=== PATIENT | female | born 1975 | race Two or more races ===

== ENCOUNTER 2018-08-01 12:37 | Emergency (ER) | payer SELFPAY | END 2018-08-01 12:39 | disposition home or self-care (01) | LOC: ED 12:37 | DX: Z02.9 Encounter for administrative examinations, unspecified (principal) ==

== ENCOUNTER 2018-09-06 12:12 | Inpatient (IN) | payer OTHER ==
[~2018-09-06] VITALS: Ht 167.6 cm; Wt 91.0 kg
[~2018-09-06 12:12] MED LIST: ALBU1.25 NEB; ALBU90AE INH; METF850T10 PO
[2018-09-06] MEDS ORDERED: ALBUTEROL/IPRATROPIUM 2.5MG/0.5MG, 3 ML NPPB ONE (12:30)
--- NOTE | 2018-09-06 14:59 | NUR ---
VESSEL SLAGMAN: PT TO ROOM FROM LOBBY.
[2018-09-06] MEDS ORDERED: ALBUTEROL/IPRATROPIUM 2.5MG/0.5MG, 3 ML ONE ×2 (15:38)
[2018-09-06] MEDS: ALBUTEROL/IPRATROPIUM 2.5MG/0.5MG, 3 ML NPPB SCH ×2 (15:42→22:00)
--- NOTE | 2018-09-06 17:24 | NUR ---
PT AMBULATED W/O OXYGEN, SP02 MONITORED = 87-88%. DR. WHITING UPDATED. PLAN FOR ADMIT DISCUSSED WITH PT AND QUESTIONS ANSWERED. PT RTD TO ROOM, 02 3L NC PLACED. CALL LIGHT W/I REACH VSS
[2018-09-06] MEDS ORDERED: SODIUM CHLORIDE FLUSH 10ML SYR IVF ONE (17:30)
--- NOTE | 2018-09-06 17:33 | NUR ---
MEAL TRAY, REG DIET PROVIDED. PT SITTING UP AT BEDSIDE TO EAT. NAD NOTED.
[2018-09-06] MEDS ORDERED: ONDANSETRON ODT 4 MG PO PRN (18:00)
[2018-09-06] MEDS ORDERED: POLYETHYLENE GLYCOL 17 GM PACKET PO PRN (18:00)
[2018-09-06] MEDS ORDERED: BISACODYL 10 MG SUPP PR PRN (18:00)
[2018-09-06] MEDS ORDERED: ACETAMINOPHEN 325 MG TABLET PO PRN (18:00)
--- NOTE | 2018-09-06 18:13 | NUR ---
PT ATE 90% OF MEAL
[2018-09-06 19:00] LABS: HEMOGLOBIN A1C 12.6 % (4.2-6.3)
--- NOTE | 2018-09-06 19:01 | NUR ---
PT BEDSIDE REPORT FROM SUSANA SPENCE. THIS RN TO ASSUME CARE OF PT. PT RESTING COMFORTABLY ON GURNEY. NADN. VSS. CALL LIGHT WITHIN REACH. AWAITING ADM BED. PT ON MED HOLD.
[2018-09-06] MEDS ORDERED: methylPREDNISolone SOD SUCC 125 MG/2 ML ONE (19:04)
[2018-09-06] MEDS ORDERED: HEPARIN 5,000 UNITS/ML, 1ML ONE (19:04)
[2018-09-06] MEDS: methylPREDNISolone SOD SUCC 125 MG/2 ML IVPush SCH ×2 (19:11→23:57)
[2018-09-06] MEDS: HEPARIN 5,000 UNITS/ML, 1ML SQ SCH (19:11)
--- NOTE | 2018-09-06 19:18 | NUR ---
PT GIVEN CRACKERS AND SPRITE AND AMB W/ STEADY GAIT TO RR AT THIS TIME.
[2018-09-06 21:05] VITALS: BP 120/85
[2018-09-06] MEDS: metFORMIN 850 MG TABLET PO SCH (21:24)
[2018-09-06] MEDS: SODIUM CHLORIDE FLUSH 10ML SYR IVF SCH (21:25)
[2018-09-06] MEDS: INSULIN REGULAR 100 UNITS/ML, 3ML VIAL SQ-INSULIN SCH (21:25)
[2018-09-06] MEDS ORDERED: INSULIN REGULAR 100 UNITS/ML, 3ML VIAL SQ-INSULIN SCH (21:30)
[2018-09-07 01:24] VITALS: BP 110/73
[2018-09-07] MEDS: HEPARIN 5,000 UNITS/ML, 1ML SQ SCH ×3 (02:01→16:54)
[2018-09-07 05:11] LABS: BASOPHILS # (AUTO) 0.06 x10^3/uL (0-0.1); BASOPHILS % (AUTO) 1 % (0-1); EOSINOPHILS # (AUTO) 0.01 x10^3/uL (0-0.4); EOSINOPHILS % (AUTO) 0 % (1-7); LYMPHOCYTES # (AUTO) 1.15 x10^3/uL (1-3.4); LYMPHOCYTES % (AUTO) 10 % (22-44); MD NO; MEAN CORPUSCULAR HEMOGLOBIN 29.5 pg (27.0-34.8); MEAN CORPUSCULAR HGB CONC 34.1 g/dL (32.4-35.8); MEAN CORPUSCULAR VOLUME 86.6 fL (80-100); MEAN PLATELET VOLUME 10.4 fL (7.4-10.4); MONOCYTES # (AUTO) 0.02 x10^3/uL (0.2-0.8); MONOCYTES % (AUTO) 0 % (2-9); NEUTROPHILS # (AUTO) 10.01 x10^3/uL (1.8-6.8); NEUTROPHILS % (AUTO) 89 % (42-75); PLATELET COUNT 229 x10^3/uL (130-400); RED BLOOD COUNT 5.27 x10^6/uL (3.82-5.3); RED CELL DISTRIBUTION WIDTH 12.8 % (9.6-15.2)
[2018-09-07 05:20] LABS: CHLORIDE 104 mmol/L (98-107)
[2018-09-07 05:30] LABS: ALANINE AMINOTRANSFERASE 23 U/L (12-78); ALBUMIN 3.3 g/dL (3.4-5.0); ALKALINE PHOSPHATASE 66 U/L (45-117); ANION GAP 9 mmol/L (5-15); BILIRUBIN,TOTAL 0.4 mg/dL (0.2-1.0); CALCIUM 9.2 mg/dL (8.5-10.1); CREATININE 0.59 mg/dL (0.55-1.02); TOTAL PROTEIN 7.1 g/dL (6.4-8.2)
[2018-09-07] MEDS: methylPREDNISolone SOD SUCC 125 MG/2 ML IVPush SCH ×3 (05:55→21:45)
[2018-09-07 07:45] VITALS: BP 103/70
[2018-09-07] MEDS: ALBUTEROL/IPRATROPIUM 2.5MG/0.5MG, 3 ML NPPB SCH (08:15)
[2018-09-07] MEDS: SODIUM CHLORIDE FLUSH 10ML SYR IVF SCH ×2 (09:00→21:00)
[2018-09-07] MEDS: INSULIN REGULAR 100 UNITS/ML, 3ML VIAL SQ-INSULIN SCH ×4 (09:28→21:45)
[2018-09-07] MEDS: SENNA/DOCUSATE TABLET PO SCH (09:29)
[2018-09-07] MEDS: metFORMIN 850 MG TABLET PO SCH (09:29)
[2018-09-07 13:25] VITALS: BP 136/89
[2018-09-07] MEDS: ALBUTEROL/IPRATROPIUM 2.5MG/0.5MG, 3 ML NPPB PRN ×2 (15:29→20:58)
[2018-09-07] MEDS: metFORMIN 500 MG TABLET PO SCH (16:52)
[2018-09-07] MEDS: SODIUM CHLORIDE 0.9% 1,000 ML IV SCH (16:54)
[2018-09-07] MEDS ORDERED: ARTIFICIAL TEARS 15 DROP/ML BOTTLE EACHEYE PRN (17:30)
[2018-09-07] MEDS: GUAIFENESIN/DM 200-20MG, 10ML UDC PO PRN (18:12)
[2018-09-07 19:22] VITALS: BP 111/59
[2018-09-07] MEDS ORDERED: INSULIN GLARGINE 100 UNITS/ML, PEN SQ-INSULIN SCH ×2 (21:00)
[2018-09-08] MEDS: SODIUM CHLORIDE 0.9% 1,000 ML IV SCH ×2 (01:33→09:00)
[2018-09-08] MEDS: HEPARIN 5,000 UNITS/ML, 1ML SQ SCH ×3 (01:34→17:54)
[2018-09-08 01:42] VITALS: BP 104/54
[2018-09-08 05:49] LABS: BASOPHILS # (AUTO) 0.04 x10^3/uL (0-0.1); BASOPHILS % (AUTO) 0 % (0-1); EOSINOPHILS % (AUTO) 0 % (1-7); LYMPHOCYTES # (AUTO) 1.36 x10^3/uL (1-3.4); LYMPHOCYTES % (AUTO) 9 % (22-44); MD NO; MEAN CORPUSCULAR HEMOGLOBIN 29.5 pg (27.0-34.8); MEAN CORPUSCULAR HGB CONC 33.9 g/dL (32.4-35.8); MEAN CORPUSCULAR VOLUME 86.9 fL (80-100); MEAN PLATELET VOLUME 10.8 fL (7.4-10.4); MONOCYTES # (AUTO) 0.26 x10^3/uL (0.2-0.8); MONOCYTES % (AUTO) 2 % (2-9); NEUTROPHILS # (AUTO) 13.41 x10^3/uL (1.8-6.8); NEUTROPHILS % (AUTO) 89 % (42-75); PLATELET COUNT 219 x10^3/uL (130-400); RED BLOOD COUNT 4.86 x10^6/uL (3.82-5.3); RED CELL DISTRIBUTION WIDTH 13.3 % (9.6-15.2)
[2018-09-08 05:54] LABS: CHLORIDE 106 mmol/L (98-107)
[2018-09-08 06:05] LABS: ANION GAP 10 mmol/L (5-15); CALCIUM 9.1 mg/dL (8.5-10.1); CREATININE 0.74 mg/dL (0.55-1.02)
[2018-09-08 07:35] VITALS: BP 104/72
[2018-09-08] MEDS: SENNA/DOCUSATE TABLET PO SCH (08:21)
[2018-09-08] MEDS: metFORMIN 500 MG TABLET PO SCH ×2 (08:21→17:23)
[2018-09-08] MEDS: SODIUM CHLORIDE FLUSH 10ML SYR IVF SCH ×2 (09:00→21:04)
[2018-09-08] MEDS: INSULIN REGULAR 100 UNITS/ML, 3ML VIAL SQ-INSULIN SCH ×4 (09:12→21:04)
[2018-09-08] MEDS: methylPREDNISolone SOD SUCC 125 MG/2 ML IVPush SCH (09:20)
[2018-09-08] MEDS: ALBUTEROL/IPRATROPIUM 2.5MG/0.5MG, 3 ML NPPB PRN (12:14)
[2018-09-08 13:30] VITALS: BP 119/70
[2018-09-08 19:11] VITALS: BP 126/79
[2018-09-08] MEDS: INSULIN GLARGINE 100 UNITS/ML, PEN SQ-INSULIN SCH (21:04)
[2018-09-08] MEDS ORDERED: PHENAZOPYRIDINE 100 MG TABLET PO ONE (21:30)
[2018-09-09 00:52] LABS: MICROSCOPIC NOT IND
[2018-09-09 00:55] LABS: CULTURE INDICATED? NO
[2018-09-09 01:30] VITALS: BP 108/74
[2018-09-09] MEDS: HEPARIN 5,000 UNITS/ML, 1ML SQ SCH ×3 (02:19→18:20)
[2018-09-09 04:00] LABS: BASOPHILS # (AUTO) 0.03 x10^3/uL (0-0.1); BASOPHILS % (AUTO) 0 % (0-1); EOSINOPHILS % (AUTO) 0 % (1-7); LYMPHOCYTES # (AUTO) 1.88 x10^3/uL (1-3.4); LYMPHOCYTES % (AUTO) 13 % (22-44); MD NO; MEAN CORPUSCULAR HEMOGLOBIN 29.2 pg (27.0-34.8); MEAN CORPUSCULAR HGB CONC 33.5 g/dL (32.4-35.8); MEAN PLATELET VOLUME 9.6 fL (7.4-10.4); MONOCYTES # (AUTO) 0.38 x10^3/uL (0.2-0.8); MONOCYTES % (AUTO) 3 % (2-9); NEUTROPHILS # (AUTO) 11.74 x10^3/uL (1.8-6.8); NEUTROPHILS % (AUTO) 84 % (42-75); PLATELET COUNT 231 x10^3/uL (130-400); RED BLOOD COUNT 4.96 x10^6/uL (3.82-5.3); RED CELL DISTRIBUTION WIDTH 12.9 % (9.6-15.2)
[2018-09-09 04:08] LABS: ANION GAP 9 mmol/L (5-15); CHLORIDE 106 mmol/L (98-107); CREATININE 0.55 mg/dL (0.55-1.02)
[2018-09-09 07:05] VITALS: BP 117/81
[2018-09-09] MEDS: SENNA/DOCUSATE TABLET PO SCH (08:09)
[2018-09-09] MEDS: metFORMIN 500 MG TABLET PO SCH ×2 (08:09→16:35)
[2018-09-09] MEDS: INSULIN REGULAR 100 UNITS/ML, 3ML VIAL SQ-INSULIN SCH ×4 (08:10→21:17)
[2018-09-09] MEDS: SODIUM CHLORIDE FLUSH 10ML SYR IVF SCH ×2 (08:10→21:06)
[2018-09-09] MEDS: ALBUTEROL/IPRATROPIUM 2.5MG/0.5MG, 3 ML NPPB PRN ×2 (11:46→18:59)
[2018-09-09 13:26] VITALS: BP 126/89
[2018-09-09 20:03] VITALS: BP 104/67
[2018-09-09] MEDS: MAGNESIUM OXIDE 400 MG TABLET PO SCH (21:05)
[2018-09-09] MEDS: INSULIN GLARGINE 100 UNITS/ML, PEN SQ-INSULIN SCH (21:17)
[2018-09-10 00:54] VITALS: BP 112/76
[2018-09-10] MEDS: HEPARIN 5,000 UNITS/ML, 1ML SQ SCH ×3 (01:49→18:08)
[2018-09-10 05:51] LABS: BASOPHILS # (AUTO) 0.04 x10^3/uL (0-0.1); BASOPHILS % (AUTO) 0 % (0-1); EOSINOPHILS # (AUTO) 0.22 x10^3/uL (0-0.4); EOSINOPHILS % (AUTO) 2 % (1-7); LYMPHOCYTES # (AUTO) 2.26 x10^3/uL (1-3.4); LYMPHOCYTES % (AUTO) 21 % (22-44); MD NO; MEAN CORPUSCULAR HEMOGLOBIN 29.3 pg (27.0-34.8); MEAN CORPUSCULAR HGB CONC 33.7 g/dL (32.4-35.8); MEAN CORPUSCULAR VOLUME 87.1 fL (80-100); MEAN PLATELET VOLUME 9.5 fL (7.4-10.4); MONOCYTES # (AUTO) 0.42 x10^3/uL (0.2-0.8); MONOCYTES % (AUTO) 4 % (2-9); NEUTROPHILS # (AUTO) 8.01 x10^3/uL (1.8-6.8); NEUTROPHILS % (AUTO) 73 % (42-75); PLATELET COUNT 229 x10^3/uL (130-400); RED BLOOD COUNT 5.14 x10^6/uL (3.82-5.3)
[2018-09-10 07:10] VITALS: BP 122/80
[2018-09-10] MEDS: metFORMIN 500 MG TABLET PO SCH ×2 (08:12→16:20)
[2018-09-10] MEDS: MAGNESIUM OXIDE 400 MG TABLET PO SCH ×2 (08:12→20:53)
[2018-09-10] MEDS: INSULIN REGULAR 100 UNITS/ML, 3ML VIAL SQ-INSULIN SCH ×4 (08:12→20:54)
[2018-09-10] MEDS: SENNA/DOCUSATE TABLET PO SCH (08:12)
[2018-09-10] MEDS: SODIUM CHLORIDE FLUSH 10ML SYR IVF SCH ×2 (08:13→20:53)
[2018-09-10] MEDS: ALBUTEROL/IPRATROPIUM 2.5MG/0.5MG, 3 ML NPPB PRN ×3 (10:05→20:15)
[2018-09-10 13:36] VITALS: BP 120/78
[2018-09-10 20:39] VITALS: BP 101/67
[2018-09-10] MEDS: INSULIN GLARGINE 100 UNITS/ML, PEN SQ-INSULIN SCH (20:53)
[2018-09-11 01:36] VITALS: BP 121/82
[2018-09-11] MEDS: HEPARIN 5,000 UNITS/ML, 1ML SQ SCH ×2 (02:24→09:59)
[2018-09-11 06:31] VITALS: BP 116/78
[2018-09-11] MEDS: INSULIN REGULAR 100 UNITS/ML, 3ML VIAL SQ-INSULIN SCH ×2 (07:00→11:22)
[2018-09-11] MEDS: metFORMIN 500 MG TABLET PO SCH (07:43)
[2018-09-11] MEDS: SODIUM CHLORIDE FLUSH 10ML SYR IVF SCH (08:27)
[2018-09-11] MEDS: SENNA/DOCUSATE TABLET PO SCH (08:27)
[2018-09-11] MEDS: MAGNESIUM OXIDE 400 MG TABLET PO SCH (08:27)
[2018-09-11] MEDS: GUAIFENESIN/DM 200-20MG, 10ML UDC PO PRN (09:59)
[2018-09-11] MEDS ORDERED: METH4TAB2 PO (10:15)
[2018-09-11] MEDS ORDERED: INSU100I13 SQ-INSULIN (10:15)
[2018-09-11] MEDS ORDERED: ALBU90AE INH (10:15)
== END 2018-09-11 12:55 | disposition home or self-care (01) | DRG 203 ==
LOC: ED 16:13 → EDIP 17:25 → 4WST 21:14 → DCLOUNGE 09-11 12:42
PROVIDERS: ADMIT Internal Medicine; ATTEND Internal Medicine
DX: J45.41 Moderate persistent asthma with (acute) exacerbation (principal); E11.9 Type 2 diabetes mellitus without complications; E66.01 Morbid (severe) obesity due to excess calories; R09.02 Hypoxemia; Z79.4 Long term (current) use of insulin; T38.0X5A Adverse effect of glucocorticoids and synthetic analogues, initial encounter; R00.0 Tachycardia, unspecified; Y92.89 Other specified places as the place of occurrence of the external cause; Z68.32 Body mass index [BMI] 32.0-32.9, adult
CPT/HCPCS: 36415; 99285; J7620; 71046; 80048; 80053; 81003; 82947; 82962; 83036; 83735; 85025; 94640; 96372; 96374; G0378; J1644; J1815; J2930; J7030; J7512